=== PATIENT | female | born 1975 | race American Indian/Alaskan Native ===

== ENCOUNTER → 2019-02-06 | Outpatient (CLI) | payer BC ==
[~2019-02-06] MED LIST: Norco 5-325 Ta1 EACH PO; PROC10 PO
== END | disposition home or self-care (01) ==
LOC: LAB SHORT 14:34 → LAB 14:34
DX: R30.0 Dysuria (principal)
CPT/HCPCS: 87086

== ENCOUNTER 2019-08-01 23:34 | Emergency (ER) | payer BC ==
[~2019-08-01] VITALS: Ht 175.3 cm; Wt 113.4 kg
[2019-08-02 00:53] LABS: Source, Urine Clean Catch
[2019-08-02 00:56] LABS: Bilirubin, Urine Neg (Neg); Blood, Urine 5+ (Neg); Glucose Qualitative, Urine Neg (Neg); Ketones, Urine 1+ (Neg); Leukocyte Esterase, Urine 2+ (Neg); Nitrite, Urine Neg (Neg); Protein, Urine 1+ (Neg); Urobilinogen, Urine NORM (Normal)
[2019-08-02 01:06] LABS: Appearance, Urine Hazy (Clear); Color, Urine Yellow (P-Yellow)
[2019-08-02 01:37] LABS: Red Blood Cells, Urine TNTC /hpf (0-2); Squamous Epithelial Cells Few /hpf (Few)
[2019-08-02 01:38] LABS: Bacteria Few /hpf
[2019-08-02 02:33] LABS: BASOPHILS ABSOLUTE AUTO 0.04 K/mm3 (0.00-0.23); BASOPHILS PERCENT AUTO 0 % (0-2); EOSINOPHILS ABSOLUTE AUTO 0.13 K/mm3 (0.00-0.68); EOSINOPHILS PERCENT AUTO 1 % (0-6); Hematocrit 45.5 % (33.0-51.0); Hemoglobin 14.5 g/dL (11.5-16.0); IMMATURE GRAN ABSOLUTE AUTO 0.04 K/mm3 (0.00-0.10); IMMATURE GRAN PERCENT AUTO 0 % (0-1); LYMPHOCYTES ABSOLUTE AUTO 3.38 K/mm3 (0.84-5.20); LYMPHOCYTES PERCENT AUTO 32 % (21-46); MONOCYTES ABSOLUTE AUTO 0.55 K/mm3 (0.16-1.47); MONOCYTES PERCENT AUTO 5 % (4-13); Mean Corpuscular HGB 28.4 pg (26.0-34.0); Mean Corpuscular HGB Conc 31.9 g/dL (31.5-36.5); Mean Corpuscular Volume 89 fL (80-100); Mean Platelet Volume 9.1 fL (9.1-12.4); NEUTROPHILS PERCENT AUTO 61 % (41-73); Platelet Count 378 K/mm3 (150-400); RDW Coefficient Variation 12.1 % (11.7-14.2); RDW Standard Deviation 39.8 fL (35.1-46.3); White Blood Cell Count 10.54 K/mm3 (4.00-11.30)
[2019-08-02 02:50] LABS: Alanine Aminotransfer (ALT/SGP 39 U/L (12-78); Albumin, Blood 4.1 g/dL (3.4-5.0); Alk Phos 82 U/L (50-136); Anion Gap 9 mmol/L (6-16); Aspartate Aminotrans (AST/SGOT 22 U/L (12-37); Bilirubin, Total 0.3 mg/dL (0.1-1.0); Blood Urea Nitrogen 11 mg/dL (8-24); CO2, Blood 23 mmol/L (21-32); Calcium, Blood 9.1 mg/dL (8.5-10.1); Chloride, Blood 110 mmol/L (98-108); Creatinine, Blood 0.65 mg/dL (0.40-1.00); Globulin, Blood 4.1 g/dL (2.2-4.0); Glomerular Filtration Rate >60 (60-); Glucose, Blood 84 mg/dL (70-99); Potassium, Blood 3.8 mmol/L (3.5-5.5); Sodium, Blood 142 mmol/L (136-145); Total Protein, Blood 8.2 g/dL (6.4-8.2)
== END 2019-08-02 04:34 | disposition home or self-care (01) ==
LOC: ER 23:34
PROVIDERS: Emergency Medicine
DX: N93.8 Other specified abnormal uterine and vaginal bleeding (principal); F32.9 Major depressive disorder, single episode, unspecified; F17.200 Nicotine dependence, unspecified, uncomplicated; Z91.040 Latex allergy status; Z91.048 Other nonmedicinal substance allergy status; Z91.030 Bee allergy status
CPT/HCPCS: 36415; 80053; 81001; 81025; 83690; 83735; 85025; 87086; 96374; 99284-25; A9270-GY; J1885

== ENCOUNTER 2019-08-04 08:08 | Emergency (ER) | payer BC ==
[~2019-08-04] VITALS: Ht 172.7 cm; Wt 113.4 kg
[2019-08-04 11:35] LABS: BASOPHILS ABSOLUTE AUTO 0.03 K/mm3 (0.00-0.23); BASOPHILS PERCENT AUTO 1 % (0-2); EOSINOPHILS ABSOLUTE AUTO 0.13 K/mm3 (0.00-0.68); EOSINOPHILS PERCENT AUTO 2 % (0-6); Hematocrit 42.7 % (33.0-51.0); Hemoglobin 13.6 g/dL (11.5-16.0); IMMATURE GRAN ABSOLUTE AUTO 0.02 K/mm3 (0.00-0.10); IMMATURE GRAN PERCENT AUTO 0 % (0-1); LYMPHOCYTES ABSOLUTE AUTO 2.03 K/mm3 (0.84-5.20); LYMPHOCYTES PERCENT AUTO 31 % (21-46); MONOCYTES ABSOLUTE AUTO 0.48 K/mm3 (0.16-1.47); MONOCYTES PERCENT AUTO 7 % (4-13); Mean Corpuscular HGB 28.5 pg (26.0-34.0); Mean Corpuscular HGB Conc 31.9 g/dL (31.5-36.5); Mean Corpuscular Volume 89 fL (80-100); Mean Platelet Volume 9.4 fL (9.1-12.4); NEUTROPHILS ABSOLUTE AUTO 3.96 K/mm3 (1.96-9.15); NEUTROPHILS PERCENT AUTO 60 % (41-73); Platelet Count 351 K/mm3 (150-400); RDW Coefficient Variation 12.2 % (11.7-14.2); RDW Standard Deviation 39.8 fL (35.1-46.3); Red Blood Cell Count 4.78 M/mm3 (3.80-5.20); White Blood Cell Count 6.65 K/mm3 (4.00-11.30)
[2019-08-04] MEDS ORDERED: Zofran4 MG PO (12:17)
[2019-08-04] MEDS ORDERED: Cipro500 MG PO (12:17)
[2019-08-04] MEDS ORDERED: Flagyl500 MG PO (12:17)
[2019-08-04] MEDS ORDERED: Norco 5-325 Ta1 EACH PO (12:21)
== END 2019-08-04 12:29 | disposition home or self-care (01) ==
LOC: ER 08:08
PROVIDERS: Internal Medicine
DX: K51.30 Ulcerative (chronic) rectosigmoiditis without complications (principal); F17.200 Nicotine dependence, unspecified, uncomplicated; Z91.030 Bee allergy status; Z91.040 Latex allergy status; Z91.018 Allergy to other foods
CPT/HCPCS: 36415; 74022; 74177; 85025; 99284-25; Q9967

== ENCOUNTER 2021-07-25 06:21 | Emergency (ER) | payer SELFPAY ==
[~2021-07-25] VITALS: Ht 175.3 cm; Wt 104.3 kg
[~2021-07-25 06:21] MED LIST changes: +Amoxicillin500 MG PO; +Cipro500 MG PO; +Flagyl500 MG PO; +PERIDEX15 ML MM; +Zofran4 MG PO
== END 2021-07-25 07:49 | disposition home or self-care (01) ==
LOC: ER 06:21
DX: M25.531 Pain in right wrist (principal); F17.200 Nicotine dependence, unspecified, uncomplicated; Z91.030 Bee allergy status; Z91.040 Latex allergy status; Z91.018 Allergy to other foods
CPT/HCPCS: 99283; A9270